=== PATIENT | male | born 1955 | race Caucasian/White ===

== ENCOUNTER → 2017-01-16 | Outpatient (CLI) | payer BC, OTHER | LOC: CIMAGING 07:58 | PROVIDERS: ATTEND Internal Medicine | DX: E78.5 Hyperlipidemia, unspecified (principal); I77.810 Thoracic aortic ectasia; I10 Essential (primary) hypertension; R73.03 Prediabetes; K76.0 Fatty (change of) liver, not elsewhere classified | CPT/HCPCS: 75571-PO ==

== ENCOUNTER → 2017-10-06 | Outpatient (CLI) | payer BC | LOC: CIMAGING 12:12 | PROVIDERS: ATTEND Internal Medicine | DX: J18.1 Lobar pneumonia, unspecified organism (principal) | CPT/HCPCS: 71046-PO ==

== ENCOUNTER → 2018-01-01 | Outpatient (CLI) | payer BC | LOC: CIMAGING 08:52 | PROVIDERS: ATTEND Internal Medicine | DX: Z09 Encounter for follow-up examination after completed treatment for conditions other than malignant neoplasm (principal); Z87.01 Personal history of pneumonia (recurrent) | CPT/HCPCS: 71046-PO ==